=== PATIENT | male | born 1955 | race Two or more races ===

== ENCOUNTER 2017-11-30 14:22 | Inpatient (IN) | payer MEDICAID ==
[~2017-11-30] VITALS: Ht 175.3 cm; Wt 93.4 kg
[2017-11-30] MEDS ORDERED: ASPirin 81 mg TAB PO ONE ×2 (15:00→15:30)
[2017-11-30 15:22] LABS: Basophils # (auto) 0 uL; Basophils % (auto) 0.7 % (0.0-2.0); Eosinophils # (auto) 0.2 uL; Hematocrit 40.3 % (41.0-53.0); Hemoglobin 13.7 g/dL (13.5-17.5); Lymphocytes # (auto) 2.4 uL; Lymphocytes % (auto) 43.3 % (10.0-50.0); Mean Corpuscular Hemoglobin 30.4 pg (28.0-32.0); Mean Corpuscular Volume 89.2 fL (80.0-100.0); Monocytes # (auto) 0.5 uL; Monocytes % (auto) 9.4 % (0.0-12.0); Neutrophils # (auto) 2.4 uL; Neutrophils % (auto) 43.6 % (37.0-80.0); Nucleated Red Blood Cells % 0.2 %; Platelet Count (auto) 266 10^3/uL (140-450); Red Blood Cells 4.52 10^6/uL (4.5-5.90); Red Cell Distribution Width 14.2 % (11.8-14.3); White Blood Cell 5.4 10^3/uL (4.4-10.8)
[2017-11-30] MEDS ORDERED: MORPHINE SULFATE 4 MG/ML SYR/VIAL IV ONE ×2 (15:30)
[2017-11-30] MEDS ORDERED: ONDANSETRON HCL 4 MG/2 ML VIAL IV ONE ×2 (15:30)
[2017-11-30 15:34] LABS: Partial Thromboplastin Time 26.9 sec (22.64-33.71); Prothrombin Time 10.9 sec (9.37-12.3)
[2017-11-30 15:37] LABS: Alanine Aminotransferase 75 U/L (16-61); Albumin 3.8 g/dL (3.4-5.0); Anion Gap 8 (5-15); Aspartate Aminotransferase 64 U/L (15-37); BUN/Creatinine Ratio 15.1; Blood Urea Nitrogen 16 mg/dL (7-18); Calcium 8.2 mg/dL (8.5-10.1); Carbon Dioxide 27 mmol/L (21-32); Chloride 102 mmol/L (98-107); GFR African American 91 mL/min; GFR Non-African American 75 mL/min; Glucose 254 mg/dL (74-106); Magnesium 1.9 mg/dL (1.6-2.6); Potassium 4.8 mmol/L (3.5-5.1); Sodium 137 mmol/L (136-145)
[2017-11-30 15:48] LABS: Alkaline Phosphatase 124 U/L (45-117); Bilirubin, Total 1.1 mg/dL (0.2-1.0); Total Protein 7.7 g/dL (6.4-8.2)
[2017-11-30 16:37] LABS: Amylase 45 U/L (25-115); Lipase 225 U/L (73-393)
[2017-11-30] MEDS ORDERED: METO-158 PO (17:56)
[2017-11-30] MEDS ORDERED: INSUINJ18 SC (17:56)
[2017-11-30] MEDS ORDERED: ASPI81CH49 PO (17:56)
[2017-11-30] MEDS ORDERED: RANO500T PO (17:56)
[2017-11-30] MEDS ORDERED: PANT40T PO (17:56)
[2017-11-30] MEDS ORDERED: HYDR-531 PO (17:56)
[2017-11-30] MEDS ORDERED: EZET10TA PO (17:56)
[2017-11-30] MEDS ORDERED: INSU0.2I SC (17:56)
[2017-11-30] MEDS ORDERED: ATOR80TA PO (17:56)
[2017-11-30] MEDS ORDERED: LORazepam 0.5 MG TAB PO PRN (18:15)
[2017-11-30] MEDS ORDERED: DEXTROSE (50%) 50ML SYRG IV PRN (18:15)
[2017-11-30] MEDS ORDERED: MORPHINE SULFATE 4 MG/ML SYR/VIAL IV PRN ×2 (18:15)
[2017-11-30] MEDS ORDERED: NITROGLYCERIN 0.4 MG SL TAB SL PRN (18:15)
[2017-11-30] MEDS ORDERED: LACTULOSE 20Gm/30ML SOLN PO PRN (18:15)
[2017-11-30] MEDS ORDERED: HYDROcodone-ACET 10/325MG TAB PO SCH (18:15)
[2017-11-30] MEDS ORDERED: PROMETHAZINE HCL 25 MG/ML 1ML IV PRN (18:15)
[2017-11-30] MEDS ORDERED: PANTOPRAZOLE 40 MG/10 ML VIAL IV ONE (18:15)
[2017-11-30] MEDS: SODIUM CHLORIDE 0.9% 1,000 ML IV SCH (19:00)
[2017-11-30 19:14] LABS: Alcohol, Urine < 3.0 mg/dL (0-5); Amphetamine Screen, Urine NEGATIVE (NEGATIVE); Barbiturate Scree,Urine NEGATIVE (NEGATIVE); Benzodiazephine Screen, Urine NEGATIVE (NEGATIVE); Cannabinoid Screen, Urine NEGATIVE (NEGATIVE); Cocaine Screen, Urine NEGATIVE (NEGATIVE); Opiate Scree,Urine POSITIVE (NEGATIVE); Phencyclidine Screen, Urine NEGATIVE (NEGATIVE)
[2017-11-30] MEDS: ENOXAPARIN SOD 40 MG/0.4 ML SYRINGE SC SCH (19:27)
[2017-11-30] MEDS: NITROGLYCERIN 0.2MG/HR TOPICAL PATCH TD SCH (19:28)
[2017-11-30] MEDS: METOPROLOL TARTRATE 50 MG TAB PO SCH (21:26)
[2017-11-30 22:10] VITALS: BP 121/69
[2017-12-01] VITALS (7 sets, daily range): BP systolic 101–135; BP diastolic 53–72
[2017-12-01] MEDS: SODIUM CHLORIDE 0.9% 1,000 ML IV SCH ×2 (00:37→21:00)
[2017-12-01] MEDS: ACCU-CHEK COMFORT CURVE STRIP VI SCH ×4 (00:37→17:29)
[2017-12-01] MEDS: TEMAZEPAM 15 MG CAP PO PRN (02:45)
[2017-12-01] MEDS: InsuLIN REG 1unit/0.01ml Soln (100units/ml) SC SCH ×4 (05:52→17:49)
[2017-12-01 05:55] LABS: Alanine Aminotransferase 121 U/L (16-61); Albumin 3.3 g/dL (3.4-5.0); Anion Gap 2 (5-15); Aspartate Aminotransferase 81 U/L (15-37); BUN/Creatinine Ratio 15.5; Blood Urea Nitrogen 13 mg/dL (7-18); Calcium 7.9 mg/dL (8.5-10.1); Carbon Dioxide 32 mmol/L (21-32); Chloride 105 mmol/L (98-107); GFR African American 119 mL/min; GFR Non-African American 98 mL/min; Glucose 83 mg/dL (74-106); Potassium 4.5 mmol/L (3.5-5.1); Sodium 139 mmol/L (136-145)
[2017-12-01 06:00] LABS: Alkaline Phosphatase 124 U/L (45-117); Total Protein 6.5 g/dL (6.4-8.2)
[2017-12-01 06:09] LABS: Cholesterol 95 mg/dL (< 200); HDL Cholesterol 45 mg/dL (40-59); LDL Cholesterol 49 mg/dL (< 100); Triglycerides 57 mg/dL (< 150)
[2017-12-01] MEDS: EZETIMIBE 10MG PO SCH (09:28)
[2017-12-01] MEDS: ENOXAPARIN SOD 40 MG/0.4 ML SYRINGE SC SCH (09:33)
[2017-12-01] MEDS: ENALAPRIL MALEATE 10 MG TAB PO SCH (09:33)
[2017-12-01] MEDS: PANTOPRAZOLE 40 MG TAB PO SCH (09:33)
[2017-12-01] MEDS: METOPROLOL TARTRATE 50 MG TAB PO SCH ×2 (09:34→21:59)
[2017-12-01] MEDS: ASPirin 81 mg TAB PO SCH (09:34)
[2017-12-01] MEDS: SOLIQUA SC SCH (09:34)
[2017-12-01] MEDS: RANOLAZINE ER 500 MG TAB PO SCH (10:36)
[2017-12-01] MEDS: NITROGLYCERIN 0.2MG/HR TOPICAL PATCH TD SCH (17:49)
[2017-12-01] MEDS: ATORVASTATIN 20 MG TAB PO SCH (21:57)
[2017-12-02] VITALS (8 sets, daily range): BP systolic 131–187; BP diastolic 66–85
[2017-12-02] MEDS: ACCU-CHEK COMFORT CURVE STRIP VI SCH ×5 (00:08→23:22)
[2017-12-02] MEDS: InsuLIN REG 1unit/0.01ml Soln (100units/ml) SC SCH ×5 (00:09→23:22)
[2017-12-02] MEDS: METOPROLOL TARTRATE 50 MG TAB PO SCH ×2 (10:00→21:36)
[2017-12-02] MEDS: EZETIMIBE 10MG PO SCH (10:00)
[2017-12-02] MEDS: SOLIQUA SC SCH (10:00)
[2017-12-02] MEDS: SODIUM CHLORIDE 0.9% 1,000 ML IV SCH (10:39)
[2017-12-02] MEDS: RANOLAZINE ER 500 MG TAB PO SCH (11:54)
[2017-12-02] MEDS: PANTOPRAZOLE 40 MG TAB PO SCH (11:54)
[2017-12-02] MEDS: ASPirin 81 mg TAB PO SCH (11:54)
[2017-12-02] MEDS: ENOXAPARIN SOD 40 MG/0.4 ML SYRINGE SC SCH (11:54)
[2017-12-02] MEDS: ENALAPRIL MALEATE 10 MG TAB PO SCH (11:55)
[2017-12-02] MEDS: NITROGLYCERIN 0.2MG/HR TOPICAL PATCH TD SCH (17:26)
[2017-12-02] MEDS: ACETAMINOPHEN 500 MG TAB PO PRN (20:13)
[2017-12-02] MEDS: ATORVASTATIN 20 MG TAB PO SCH (21:36)
[2017-12-02] MEDS: TEMAZEPAM 15 MG CAP PO PRN (23:22)
[2017-12-03] VITALS (7 sets, daily range): BP systolic 124–148; BP diastolic 60–75
[2017-12-03] MEDS: SODIUM CHLORIDE 0.9% 1,000 ML IV SCH ×2 (00:30→12:45)
[2017-12-03] MEDS: ACCU-CHEK COMFORT CURVE STRIP VI SCH ×4 (06:04→23:44)
[2017-12-03] MEDS: InsuLIN REG 1unit/0.01ml Soln (100units/ml) SC SCH ×4 (06:04→23:44)
[2017-12-03 06:32] LABS: Basophils # (auto) 0 uL; Basophils % (auto) 0.6 % (0.0-2.0); Eosinophils # (auto) 0.2 uL; Eosinophils % (auto) 4.7 % (0.0-7.0); Hematocrit 36.7 % (41.0-53.0); Hemoglobin 12.6 g/dL (13.5-17.5); Lymphocytes # (auto) 1.6 uL; Lymphocytes % (auto) 31.4 % (10.0-50.0); Mean Corpuscular Hemoglobin 30.7 pg (28.0-32.0); Mean Corpuscular Hgb Conc. 34.5 g/dL (32.0-36.0); Mean Corpuscular Volume 88.9 fL (80.0-100.0); Monocytes # (auto) 0.6 uL; Monocytes % (auto) 11.3 % (0.0-12.0); Neutrophils # (auto) 2.7 uL; Nucleated Red Blood Cells % 0.1 %; Platelet Count (auto) 244 10^3/uL (140-450); Red Blood Cells 4.12 10^6/uL (4.5-5.90); Red Cell Distribution Width 14.1 % (11.8-14.3); White Blood Cell 5.1 10^3/uL (4.4-10.8)
[2017-12-03 06:55] LABS: BUN/Creatinine Ratio 14.9; Calcium 8.4 mg/dL (8.5-10.1); Potassium 4.2 mmol/L (3.5-5.1)
[2017-12-03] MEDS: METOPROLOL TARTRATE 50 MG TAB PO SCH ×2 (08:52→21:36)
[2017-12-03] MEDS: ASPirin 81 mg TAB PO SCH (08:52)
[2017-12-03] MEDS: RANOLAZINE ER 500 MG TAB PO SCH (08:53)
[2017-12-03] MEDS: ENALAPRIL MALEATE 10 MG TAB PO SCH (08:53)
[2017-12-03] MEDS: SOLIQUA SC SCH (08:53)
[2017-12-03] MEDS: PANTOPRAZOLE 40 MG TAB PO SCH (08:53)
[2017-12-03] MEDS: EZETIMIBE 10MG PO SCH (08:53)
[2017-12-03] MEDS ORDERED: IOHEXOL 350 MG/ML 100ML IJ ONE ×3 (12:51→14:35)
[2017-12-03] MEDS ORDERED: LIDOCAINE 2%HCL (LOCAL ANESTH.) INJ 20ML MDV ONE (12:51)
[2017-12-03] MEDS ORDERED: fentaNYL CITRATE 100 MCG/2 ML VL ONE (14:10)
[2017-12-03] MEDS ORDERED: MIDAZOLAM HCL 1MG/1ML-2 ML VIAL ONE (14:10)
[2017-12-03] MEDS ORDERED: ANGIOMAX 250 MG VIAL IV ONE (14:10)
[2017-12-03] MEDS ORDERED: CLOPIDOGREL 300 MG TAB ONE (14:57)
[2017-12-03] MEDS: NITROGLYCERIN 0.2MG/HR TOPICAL PATCH TD SCH (17:48)
[2017-12-03] MEDS: ACETAMINOPHEN 500 MG TAB PO PRN (20:06)
[2017-12-03] MEDS: ATORVASTATIN 20 MG TAB PO SCH (21:36)
[2017-12-03] MEDS: TEMAZEPAM 15 MG CAP PO PRN (23:44)
[2017-12-04] MEDS: SODIUM CHLORIDE 0.9% 1,000 ML IV SCH (03:00)
[2017-12-04 05:21] VITALS: BP 105/67
[2017-12-04] MEDS: InsuLIN REG 1unit/0.01ml Soln (100units/ml) SC SCH (06:18)
[2017-12-04] MEDS: ACCU-CHEK COMFORT CURVE STRIP VI SCH (06:18)
[2017-12-04] MEDS ORDERED: CLOP75TA28 PO (08:58)
[2017-12-04] MEDS ORDERED: ENAL5TAB92 PO (08:58)
[2017-12-04 09:00] VITALS: BP 144/77
[2017-12-04 09:25] LABS: Basophils # (auto) 0 uL; Basophils % (auto) 0.2 % (0.0-2.0); Eosinophils # (auto) 0.1 uL; Eosinophils % (auto) 1.9 % (0.0-7.0); Hematocrit 39.1 % (41.0-53.0); Hemoglobin 13.2 g/dL (13.5-17.5); Lymphocytes # (auto) 1.4 uL; Lymphocytes % (auto) 24.6 % (10.0-50.0); Mean Corpuscular Hemoglobin 29.9 pg (28.0-32.0); Mean Corpuscular Hgb Conc. 33.6 g/dL (32.0-36.0); Mean Corpuscular Volume 88.8 fL (80.0-100.0); Monocytes # (auto) 0.4 uL; Neutrophils # (auto) 3.8 uL; Neutrophils % (auto) 66.3 % (37.0-80.0); Nucleated Red Blood Cells % 0.1 %; Platelet Count (auto) 249 10^3/uL (140-450); Red Blood Cells 4.41 10^6/uL (4.5-5.90); Red Cell Distribution Width 14.3 % (11.8-14.3); White Blood Cell 5.7 10^3/uL (4.4-10.8)
[2017-12-04] MEDS: EZETIMIBE 10MG PO SCH (09:36)
[2017-12-04] MEDS: SOLIQUA SC SCH (09:37)
[2017-12-04] MEDS: METOPROLOL TARTRATE 50 MG TAB PO SCH (09:41)
[2017-12-04] MEDS: PANTOPRAZOLE 40 MG TAB PO SCH (09:41)
[2017-12-04] MEDS: ASPirin 81 mg TAB PO SCH (09:41)
[2017-12-04 09:43] LABS: BUN/Creatinine Ratio 10.8; Calcium 8.4 mg/dL (8.5-10.1); Potassium 4.1 mmol/L (3.5-5.1)
[2017-12-04] MEDS: RANOLAZINE ER 500 MG TAB PO SCH (09:43)
[2017-12-04] MEDS: ENALAPRIL MALEATE 10 MG TAB PO SCH (09:43)
[2017-12-04] MEDS ORDERED: ENOXAPARIN SOD 40 MG/0.4 ML SYRINGE SC SCH (10:00)
[2017-12-04] MEDS ORDERED: CLOPIDOGREL BISULFATE 75 MG TAB PO SCH (10:00)
== END 2017-12-04 11:00 | disposition home or self-care (01) | DRG 175 ==
LOC: ER 14:22 → TELE 14:23 → TELE-WESTW 22:00
PROVIDERS: ADMIT Internal Medicine; ATTEND Internal Medicine
PROC: B2111ZZ Fluoroscopy of Multiple Coronary Arteries using Low Osmolar Contrast (ICD-10-PCS; principal; 2017-12-03)
PROC: 027135Z Dilation of Coronary Artery, Two Arteries with Two Drug-eluting Intraluminal Devices, Percutaneous Approach (ICD-10-PCS; 2017-12-03)
PROC: B2131ZZ Fluoroscopy of Multiple Coronary Artery Bypass Grafts using Low Osmolar Contrast (ICD-10-PCS; 2017-12-03)
PROC: B2151ZZ Fluoroscopy of Left Heart using Low Osmolar Contrast (ICD-10-PCS; 2017-12-03)
PROC: 4A023N7 Measurement of Cardiac Sampling and Pressure, Left Heart, Percutaneous Approach (ICD-10-PCS; 2017-12-03)
PROC: B240ZZ3 Ultrasonography of Single Coronary Artery, Intravascular (ICD-10-PCS; 2017-12-03)
DX: I25.110 Atherosclerotic heart disease of native coronary artery with unstable angina pectoris (principal); E83.51 Hypocalcemia; I10 Essential (primary) hypertension; E11.9 Type 2 diabetes mellitus without complications; R10.9 Unspecified abdominal pain; R79.89 Other specified abnormal findings of blood chemistry; E78.5 Hyperlipidemia, unspecified; Z90.49 Acquired absence of other specified parts of digestive tract; Z79.899 Other long term (current) drug therapy; Z79.4 Long term (current) use of insulin; Z95.1 Presence of aortocoronary bypass graft; Z82.49 Family history of ischemic heart disease and other diseases of the circulatory system; I25.9 Chronic ischemic heart disease, unspecified
CPT/HCPCS: 36415; 71046; 74176; 80048; 80053; 80061; 80307; 82150; 82550; 82962; 83036; 83690; 83735; 83880; 84443; 84484; 85025; 85379; 85610; 85652; 85730; 86141; 86850; 86900; 86901; 92928; 92929; 92978; 93005; 93017; 93306; 93459; 94761; 96374; 96375; 99152; 99153; C1874; C9113; J1815; J2250; J2405

== ENCOUNTER → 2018-03-25 | Outpatient (CLI) | payer MEDICAID ==
[~2018-03-25] MED LIST: ASPI81CH49 PO; ATOR80TA PO; CLOP75TA28 PO; ENAL5TAB92 PO; EZET10TA PO; HYDR-531 PO; INSU0.2I SC; INSUINJ18 SC; METO-158 PO; PANT40T PO; RANO500T PO
== END | disposition home or self-care (01) ==
LOC: Rad HDHVI 07:58
PROVIDERS: ATTEND Internal Medicine Cardiovascular Disease
DX: I25.10 Atherosclerotic heart disease of native coronary artery without angina pectoris (principal); E11.65 Type 2 diabetes mellitus with hyperglycemia; H81.10 Benign paroxysmal vertigo, unspecified ear; E11.9 Type 2 diabetes mellitus without complications; I10 Essential (primary) hypertension; E78.5 Hyperlipidemia, unspecified; Z79.899 Other long term (current) drug therapy
CPT/HCPCS: 93880

== ENCOUNTER → 2018-05-11 | Outpatient (CLI) | payer MEDICAID ==
[~2018-05-11] MED LIST changes: +ADENOSINE 81 MG in GIVE UN-DILUTED 0 ML IV ONE; +ADENOSINE 90 MG/30 ML INJ IV ONE
== END | disposition home or self-care (01) ==
LOC: Rad HDHVI 09:38
PROVIDERS: ATTEND Internal Medicine
DX: I25.810 Atherosclerosis of coronary artery bypass graft(s) without angina pectoris (principal); I10 Essential (primary) hypertension; E11.9 Type 2 diabetes mellitus without complications; E78.5 Hyperlipidemia, unspecified
CPT/HCPCS: 78452; 93005; 96374; 96375; A9500; J0153

== ENCOUNTER → 2018-07-29 | Outpatient (CLI) | payer MEDICAID ==
[~2018-07-29] MED LIST changes: -ADENOSINE 81 MG in GIVE UN-DILUTED 0 ML IV ONE; -ADENOSINE 90 MG/30 ML INJ IV ONE; +ENAL5TAB PO; -ENAL5TAB92 PO; +IOHEXOL 350 MG/ML 100ML IJ ONE
[2018-07-29 09:35] VITALS: BP 185/81
[2018-07-29 10:05] VITALS: BP 151/68
== END | disposition home or self-care (01) ==
LOC: Rad HDHVI 08:53
PROVIDERS: ATTEND Internal Medicine Cardiovascular Disease
DX: I70.0 Atherosclerosis of aorta (principal); I70.8 Atherosclerosis of other arteries; K57.30 Diverticulosis of large intestine without perforation or abscess without bleeding; I25.10 Atherosclerotic heart disease of native coronary artery without angina pectoris; I10 Essential (primary) hypertension; F32.9 Major depressive disorder, single episode, unspecified; E11.9 Type 2 diabetes mellitus without complications; E78.5 Hyperlipidemia, unspecified; M89.8X6 Other specified disorders of bone, lower leg
CPT/HCPCS: 75635; 82565; G0463; Q9967

== ENCOUNTER 2019-03-17 09:07 | Emergency (ER) | payer MEDICAID ==
[~2019-03-17] VITALS: Ht 175.3 cm; Wt 113.4 kg
[~2019-03-17 09:07] MED LIST changes: -IOHEXOL 350 MG/ML 100ML IJ ONE
[2019-03-17 09:27] VITALS: BP 131/68
[2019-03-17] MEDS ORDERED: SODIUM CHLORIDE 0.9% 1,000 ML IV ONE (10:01)
[2019-03-17 10:04] LABS: Basophils # (auto) 0 uL; Basophils % (auto) 0.5 % (0.0-2.0); Eosinophils # (auto) 0.1 uL; Eosinophils % (auto) 1.3 % (0.0-7.0); Hematocrit 40.9 % (41.0-53.0); Hemoglobin 13.6 g/dL (13.5-17.5); Lymphocytes # (auto) 1.5 uL; Lymphocytes % (auto) 31.6 % (10.0-50.0); Mean Corpuscular Hgb Conc. 33.2 g/dL (32.0-36.0); Mean Corpuscular Volume 90.6 fL (80.0-100.0); Monocytes # (auto) 0.4 uL; Monocytes % (auto) 7.6 % (0.0-12.0); Neutrophils # (auto) 2.7 uL; Platelet Count (auto) 283 10^3/uL (140-450); Red Blood Cells 4.52 10^6/uL (4.5-5.90); Red Cell Distribution Width 15.2 % (11.8-14.3); White Blood Cell 4.6 10^3/uL (4.4-10.8)
[2019-03-17] MEDS ORDERED: ASPirin 81 mg TAB PO ONE (10:15)
[2019-03-17] MEDS ORDERED: MECLIZINE HCL 25 MG TAB PO ONE (10:15)
[2019-03-17 10:16] LABS: Alanine Aminotransferase 29 U/L (16-61); Albumin 3.6 g/dL (3.4-5.0); Anion Gap 11 (5-15); Aspartate Aminotransferase 18 U/L (15-37); Blood Urea Nitrogen 12 mg/dL (7-18); Calcium 8.4 mg/dL (8.5-10.1); Carbon Dioxide 24 mmol/L (21-32); Chloride 102 mmol/L (98-107); Glucose 350 mg/dL (74-106); Potassium 3.9 mmol/L (3.5-5.1); Sodium 137 mmol/L (136-145)
[2019-03-17 10:21] LABS: Alkaline Phosphatase 138 U/L (45-117); BUN/Creatinine Ratio 10.8; Bilirubin, Total 1.1 mg/dL (0.2-1.0); GFR African American 86 mL/min; GFR Non-African American 71 mL/min; Total Protein 7.2 g/dL (6.4-8.2)
== END 2019-03-17 11:21 | disposition home or self-care (01) ==
LOC: ER 09:11
DX: R07.89 Other chest pain (principal); R42 Dizziness and giddiness; I25.810 Atherosclerosis of coronary artery bypass graft(s) without angina pectoris; E11.9 Type 2 diabetes mellitus without complications; E78.5 Hyperlipidemia, unspecified; I10 Essential (primary) hypertension; Z79.82 Long term (current) use of aspirin; Z79.899 Other long term (current) drug therapy
CPT/HCPCS: 36415; 70450; 71046; 80053; 84484; 85025; 93005; 94761; 96360; 99284; J8597

== ENCOUNTER → 2019-05-31 | Outpatient (CLI) | payer MEDICAID ==
[~2019-05-31] MED LIST changes: +EZET-10 PO; -EZET10TA PO
== END | disposition home or self-care (01) ==
LOC: Rad HDHVI 08:05
PROVIDERS: ATTEND Internal Medicine
DX: I20.9 Angina pectoris, unspecified (principal); I11.9 Hypertensive heart disease without heart failure; E11.9 Type 2 diabetes mellitus without complications; E78.5 Hyperlipidemia, unspecified
CPT/HCPCS: 93306

== ENCOUNTER → 2019-06-15 | Outpatient (CLI) | payer MEDICAID ==
[~2019-06-15] VITALS: Ht 175.3 cm; Wt 98.9 kg
[~2019-06-15] MED LIST changes: +ADENOSINE 83 MG in GIVE UN-DILUTED 0 ML IV ONE; +ADENOSINE 90 MG/30 ML INJ IV ONE
== END | disposition home or self-care (01) ==
LOC: Rad HDHVI 07:59
PROVIDERS: ATTEND Internal Medicine
DX: I25.118 Atherosclerotic heart disease of native coronary artery with other forms of angina pectoris (principal); E11.42 Type 2 diabetes mellitus with diabetic polyneuropathy; I10 Essential (primary) hypertension; E78.5 Hyperlipidemia, unspecified; R00.2 Palpitations
CPT/HCPCS: 78452; 93005; 96374; 96375; A9500; J0153

== ENCOUNTER 2021-06-01 06:35 | Day surgery (SDC) | payer OTHER, MEDICAID ==
[~2021-06-01] VITALS: Ht 175.3 cm; Wt 102.1 kg
[~2021-06-01 06:35] MED LIST changes: -ADENOSINE 83 MG in GIVE UN-DILUTED 0 ML IV ONE; -ADENOSINE 90 MG/30 ML INJ IV ONE; -ATOR80TA PO; +COEN100C37 PO; +DULO20CA PO; -ENAL5TAB PO; +EVOL140I2 SC; -EZET-10 PO; -HYDR-531 PO; +INSU100I44 SC; -INSUINJ18 SC; +LISI-716 PO; -PANT40T PO; -RANO500T PO; +RANO500T2 PO
[2021-06-01] MEDS ORDERED: LIDOCAINE 2%HCL (LOCAL ANESTH.) INJ 20ML MDV ONE (07:08)
[2021-06-01] MEDS ORDERED: HEPARIN SODIUM (PORCINE) 5000 UNITS/ML 1ML VIAL ONE (07:43)
[2021-06-01] MEDS ORDERED: VERAPAMIL 2.5MG/ML INJ 2ML VIAL IV ONE (07:43)
[2021-06-01] MEDS ORDERED: ANGIOMAX 250 MG VIAL IV ONE (07:43)
[2021-06-01] MEDS ORDERED: SODIUM CHL 0.9% 0 ML ONE (07:44)
[2021-06-01] MEDS ORDERED: fentaNYL CITRATE 100 MCG/2 ML VL ONE (07:44)
[2021-06-01] MEDS ORDERED: MIDAZOLAM HCL 2MG/2ML 2ml VIAL (1mg/ml) ONE (07:44)
[2021-06-01] MEDS ORDERED: CLOP75TA70 PO (09:09)
[2021-06-01] MEDS ORDERED: CITA-77 PO (09:21)
[2021-06-01] MEDS ORDERED: LATA0.0019 EACHEYE (09:23)
[2021-06-01] MEDS ORDERED: TIZA2CAP7 PO (09:27)
== END 2021-06-01 11:09 | disposition home or self-care (01) ==
LOC: CATH 06:35
PROVIDERS: ATTEND Internal Medicine Cardiovascular Disease
DX: R94.39 Abnormal result of other cardiovascular function study (principal); I25.10 Atherosclerotic heart disease of native coronary artery without angina pectoris; E78.5 Hyperlipidemia, unspecified; I25.2 Old myocardial infarction; E11.9 Type 2 diabetes mellitus without complications; I10 Essential (primary) hypertension; Z20.822 Contact with and (suspected) exposure to COVID-19; Z87.891 Personal history of nicotine dependence; Z83.3 Family history of diabetes mellitus; Z95.5 Presence of coronary angioplasty implant and graft; Z98.890 Other specified postprocedural states; Z79.899 Other long term (current) drug therapy
CPT/HCPCS: 93459; 93571; C1769; C1894; J1644; J2250; J3010; U0003; 99152; 99153

== ENCOUNTER → 2022-06-25 | Outpatient (CLI) | payer OTHER, MEDICAID ==
[~2022-06-25] MED LIST changes: +CITA-77 PO; -CLOP75TA28 PO; +CLOP75TA70 PO; +LATA0.0019 EACHEYE; +TIZA2CAP7 PO
[2022-06-25 09:33] LABS: Basophils # (auto) 0 10 ^3/uL (0-0.2); Basophils % (auto) 0.6 % (0.0-2.0); Eosinophils # (auto) 0.1 10 ^3/uL (0-0.8); Eosinophils % (auto) 1.3 % (0.0-7.0); Hematocrit 39.7 % (41.0-53.0); Hemoglobin 13.4 g/dL (13.5-17.5); Lymphocytes # (auto) 1.7 10 ^3/uL (0.4-5.4); Lymphocytes % (auto) 33.2 % (10.0-50.0); Mean Corpuscular Hemoglobin 30.8 pg (28.0-32.0); Mean Corpuscular Hgb Conc. 33.6 g/dL (32.0-36.0); Mean Corpuscular Volume 91.7 fL (80.0-100.0); Monocytes # (auto) 0.4 10 ^3/uL (0-1.3); Monocytes % (auto) 8.3 % (0.0-12.0); Neutrophils % (auto) 56.6 % (37.0-80.0); Nucleated Red Blood Cells % 0.1 %; Red Blood Cells 4.33 10^6/uL (4.5-5.90); Red Cell Distribution Width 14.2 % (11.8-14.3); White Blood Cell 5.2 10^3/uL (4.4-10.8)
[2022-06-25 11:12] LABS: Albumin 3.7 g/dL (3.4-5.0); Calcium 8.6 mg/dL (8.5-10.1); Potassium 4.9 mmol/L (3.5-5.1)
[2022-06-25 11:17] LABS: BUN/Creatinine Ratio 15.5; Bilirubin, Total 0.9 mg/dL (0.2-1.0); Total Protein 6.8 g/dL (6.4-8.2)
== END | disposition home or self-care (01) ==
LOC: LAB 09:16
PROVIDERS: ATTEND Nurse Practitioner Family
DX: E11.65 Type 2 diabetes mellitus with hyperglycemia (principal); I10 Essential (primary) hypertension; Z00.00 Encounter for general adult medical examination without abnormal findings
CPT/HCPCS: 36415; 80053; 80061; 82043; 83036; 84439; 84443; 85025

== ENCOUNTER 2023-08-07 06:57 | Inpatient (IN) | payer OTHER, MEDICAID ==
[2023-07-31 09:57] LABS: Basophils # (auto) 0 10 ^3/uL (0-0.2); Basophils % (auto) 0.3 % (0.0-2.0); Eosinophils # (auto) 0.1 10 ^3/uL (0-0.8); Eosinophils % (auto) 1.3 % (0.0-7.0); Hematocrit 40.4 % (41.0-53.0); Hemoglobin 13.5 g/dL (13.5-17.5); Lymphocytes # (auto) 1.9 10 ^3/uL (0.4-5.4); Lymphocytes % (auto) 28.9 % (10.0-50.0); Mean Corpuscular Hemoglobin 31.1 pg (28.0-32.0); Mean Corpuscular Hgb Conc. 33.3 g/dL (32.0-36.0); Mean Corpuscular Volume 93.4 fL (80.0-100.0); Monocytes # (auto) 0.5 10 ^3/uL (0-1.3); Monocytes % (auto) 7.4 % (0.0-12.0); Neutrophils # (auto) 4.1 10 ^3/uL (1.6-8.6); Neutrophils % (auto) 62.1 % (37.0-80.0); Red Blood Cells 4.32 10^6/uL (4.5-5.90); White Blood Cell 6.5 10^3/uL (4.4-10.8)
[2023-07-31 10:10] LABS: Urine Bacteria NONE SEEN /hpf (None Seen); Urine Blood Negative /uL (Negative); Urine Clarity Clear (Clear); Urine Color Yellow (Yellow); Urine Protein, UAD TRACE (Negative); Urine Urobilinogen Normal (Negative); Urine WBC <1 /hpf (0 - 3); Urine pH 6.5 (5.0-8.0)
[2023-07-31 10:22] LABS: Alanine Aminotransferase 21 U/L (7-40); Albumin 4.9 g/dL (3.2-4.8); Alkaline Phosphatase 148 U/L (46-116); Anion Gap 3 (5-15); Aspartate Aminotransferase 20 U/L (13-40); BUN/Creatinine Ratio 10.2 (10.0-20.0); Blood Urea Nitrogen 10 mg/dL (9-23); Calcium 9.7 mg/dL (8.5-10.1); Carbon Dioxide 31 mmol/L (20-30); Chloride 103 mmol/L (98-107); Glucose 122 mg/dL (74-106); Potassium 4.8 mmol/L (3.5-5.1); Sodium 137 mmol/L (136-145)
[2023-07-31 10:23] LABS: Total Protein 7.6 g/dL (5.7-8.2)
[2023-07-31 10:54] LABS: Partial Thromboplastin Time 31.9 SEC (24.5-34.5); Prothrombin Time 10.5 sec (9.3-11.8)
[~2023-08-07] VITALS: Ht 175.3 cm; Wt 94.1 kg
[~2023-08-07 06:57] MED LIST changes: +ATOR20TA50 PO; -CITA-77 PO; -CLOP75TA70 PO; -EVOL140I2 SC; +FUR20T PO; +HYDR-3682 PO; +HYDR-4798 PO; -INSU100I44 SC; +INSU100I54 SC; -LATA0.0019 EACHEYE; +LATA0.008 EACHEYE; -LISI-716 PO; -METO-158 PO; +METO-6 PO; +PANT40TA2 PO; +POTA-220 PO; +TAMS-35 PO; -TIZA2CAP7 PO; +ZOLP10TA6 PO
[2023-08-07] MEDS ORDERED: KETOROLAC TROMETH 30 MG/ML 1ML VIAL ONE (07:42)
[2023-08-07] MEDS ORDERED: GLYCOPYRROLATE 0.2 MG/ML 1ML VIAL ONE (07:42)
[2023-08-07] MEDS ORDERED: PROPOFOL 10 MG/ML 20 ML IV ONE ×2 (07:42→08:51)
[2023-08-07] MEDS ORDERED: ONDANSETRON HCL 4 MG/2 ML VIAL ONE (07:42)
[2023-08-07] MEDS ORDERED: DexAMETHasone SOD PHOS 10MG/1ML VIAL INJ ONE (07:42)
[2023-08-07] MEDS ORDERED: fentaNYL CITRATE 100 MCG/2 ML VL ONE (07:43)
[2023-08-07] MEDS ORDERED: CIPROFLOXACIN 400MG/200ML 200 ML IV ONE (08:00)
[2023-08-07] MEDS ORDERED: MORPHINE SULFATE INJ 2 MG/ml SYRG IV PRN ×2 (08:30→10:45)
[2023-08-07] MEDS ORDERED: NITROGLYCERIN 0.4 MG SL TAB SL PRN (08:30)
[2023-08-07] MEDS ORDERED: PHENAZOPYRIDINE HCL 100 MG TAB PO ONE (08:30)
[2023-08-07 09:20] VITALS: O2SAT 100
[2023-08-07] MEDS ORDERED: ONDANSETRON HCL 4 MG/2 ML VIAL IV PRN (10:45)
[2023-08-07] MEDS ORDERED: LORazepam 0.5 MG TAB PO PRN (10:45)
[2023-08-07] MEDS ORDERED: ACETAMINOPHEN 500 MG TAB PO PRN (10:45)
[2023-08-07] MEDS ORDERED: DEXTROSE (50%) 50ML SYRG IV PRN (10:45)
[2023-08-07] MEDS: HYDROcodone-ACET 5/325MG TAB PO PRN (10:54)
[2023-08-07] MEDS: ACCU-CHEK COMFORT CURVE STRIP VI SCH ×2 (11:30→17:15)
[2023-08-07] MEDS: InsuLIN REG 1unit/0.01ml Soln (100units/ml) SC SCH ×2 (11:30→17:15)
[2023-08-07 11:37] VITALS: BP 142/70; PULSE 54; RESP 18; TEMP 98.4; O2SAT 98
[2023-08-07 13:00] VITALS: BP 142/70; PULSE 54; RESP 18; TEMP 98.2; O2SAT 98
[2023-08-07 16:51] VITALS: BP 145/69; PULSE 60; RESP 18; TEMP 97.3; O2SAT 98
[2023-08-07] MEDS ORDERED: ZOLPIDEM TARTRATE 5 MG TAB PO SCH (18:00)
[2023-08-07] MEDS ORDERED: ATORVASTATIN 20 MG TAB PO SCH (18:00)
[2023-08-07] MEDS ORDERED: LATANOPROST 0.005 % OPTH(EYE) SOL 2.5ML EACHEYE SCH (18:00)
[2023-08-07 22:00] VITALS: BP 123/64; PULSE 85; RESP 19; TEMP 98.2; O2SAT 95
[2023-08-07] MEDS: DULOXETINE HCL 20 MG PO SCH (22:00)
[2023-08-07] MEDS: RANOLAZINE ER 500 MG TAB PO SCH (22:28)
[2023-08-08] MEDS: ACCU-CHEK COMFORT CURVE STRIP VI SCH ×3 (00:32→11:25)
[2023-08-08] MEDS: InsuLIN REG 1unit/0.01ml Soln (100units/ml) SC SCH ×3 (00:33→11:36)
[2023-08-08 05:00] VITALS: BP 133/61; PULSE 77; RESP 19; TEMP 98.2; O2SAT 96
[2023-08-08 08:30] VITALS: PULSE 64; RESP 16; O2SAT 97
[2023-08-08] MEDS: RANOLAZINE ER 500 MG TAB PO SCH (08:50)
[2023-08-08] MEDS: DULOXETINE HCL 20 MG PO SCH (08:51)
[2023-08-08 09:00] VITALS: BP 126/61; PULSE 64; RESP 18; TEMP 97.9; O2SAT 96
[2023-08-08] MEDS ORDERED: TAMSULOSIN HYDROCHLORIDE 0.4 MG CAP PO SCH (10:00)
[2023-08-08] MEDS ORDERED: METOPROLOL SUCCINATE XL 50 MG TAB PO SCH (10:00)
[2023-08-08] MEDS ORDERED: PANTOPRAZOLE 40 MG TAB PO SCH (10:00)
[2023-08-08] MEDS ORDERED: hydrOXYzine 25 MG TAB or CAP PO SCH (10:00)
[2023-08-08 13:00] VITALS: BP 127/55; PULSE 67; RESP 18; TEMP 98.7; O2SAT 9
[2023-08-08] MEDS: HYDROcodone-ACET 5/325MG TAB PO PRN (15:43)
== END 2023-08-08 17:14 | disposition home or self-care (01) | DRG 726 ==
LOC: SUR 06:57 → OVERFLOW 08:21 → WEST WING 12:07
PROVIDERS: ADMIT Urology; ATTEND Urology
PROC: 0T7D8DZ Dilation of Urethra with Intraluminal Device, Via Natural or Artificial Opening Endoscopic (ICD-10-PCS; principal; 2023-08-07 08:47)
DX: N40.1 Benign prostatic hyperplasia with lower urinary tract symptoms (principal); I25.10 Atherosclerotic heart disease of native coronary artery without angina pectoris; E11.9 Type 2 diabetes mellitus without complications; E78.5 Hyperlipidemia, unspecified; I10 Essential (primary) hypertension; Z95.1 Presence of aortocoronary bypass graft; Z82.49 Family history of ischemic heart disease and other diseases of the circulatory system; Z90.49 Acquired absence of other specified parts of digestive tract; F32.A Depression, unspecified
CPT/HCPCS: 36415; 80053; 81001; 82962; 83036; 85025; 85610; 85730; 87086; G0378; J1100; J1815; J1885; J2405; J2704